=== PATIENT | female | born 1955 | race Caucasian/White ===

== ENCOUNTER 2025-03-29 12:15 | Outpatient (RCR) | payer MEDICARE, OTHER, SELFPAY ==
--- NOTE | 2025-02-20 10:40 | PT.OPPOC ---
Physical, Occupational & Speech Therapy At [facility] Current Diagnoses Benign paroxysmal vertigo, left ear (02/20/25) Dizziness and giddiness (02/20/25) Visit Care Team Role Provider Type Mable Luna MD Attending Provider Non-Staff Family Provider Primary Care Provider Referring Provider Specialty: Family Practice Address: [address] [place] [address]. [address], [place], [address] Email: Plan Of Care PT OP: Balance, Vestibular, Neuro Start: 02/20/25 10:27 Freq: Status: Active Protocol: Document 02/20/25 09:45 DCW (Rec: 02/20/25 10:38 DCW [id number]) Out-Patient Physical Therapy Visit Information Visit Information Visit Type Initial Evaluation Visit Start Time 09:45 Visit Stop Time 10:25 Visit Number 1 Number of PACKAGING SPECIALIST Visits 0 Progress Note Due 03/22/25 Evaluation Information Evaluation Date 02/20/25 Current Condition History of Current Condition Onset Date 01/23/25 Current Complaints Positional vertigo History of Current Pt is a 70 year old female complaining of a one month Condition history of motion-induced vertigo. Pt reports episodes last less than one minute. Symptoms are provoked by lying back, specifically on her left side, or quick head turns. Pt notes she had BPPV a few years ago, and it was successfully treated with an Asiya Maneuver. Pt denies recent hearing changes, diplopia, dysarthria, discoordination, or decreased mentation/consciousness. Pt reports symptoms are waxing/waning in nature. Pt denies hx of HTN, hyperlipidemia, diabetes, arrhythmia, head trauma, seizure, migraines, CVA, or excessive smoking or drinking. OP-PT Subjective Patient Comments Patient Comments Today's the worst that it has been. Yesterday, I thought it was getting better. Patient Questionnaires Dizziness Handicap Inventory DHI Score 66% Vestibular Assessment Auditory Tests Garrett Test Within normal limits Rinne Test Negative Air Conduction Equal Results Visual Testing Smooth Pursuits WNL Horizontal Smooth Pursuits WNL Vertical Saccades Horizontal WNL Saccades Vertical WNL Positional Testing [place]-Hallpike Positive Left,Negative Right,Upbeating,< 60 Seconds Canalithic Repositioning BPPV Treatment Asiya Affected Canal(s) Left Posterior Reps x2 Comments Modified Asiya Physical Therapy Assessment Rehab Potential Rehabilitation Excellent Potential Evaluation Complexity Number of Personal 3 or More Factors/ Comorbidities Number of Body 4 or More Systems Impaired Clinical Unstable Presentation at Evaluation Impairments Impairments Balance,Functional Activities,Functional Mobility, Transfers,Vestibular Goals Two Impairment Positive left [place]-Hallpike Reactor Operator Goal (LTG) Pt to present with negative positional testing bilaterally LTG Duration 04/22/25 One Impairment Pt experiences vertigo with bed mobility Reactor Operator Goal (LTG) Pt to report no vertigo with bed mobility for one full week LTG Duration 04/22/25 Assessment Summary Assessment During left [place]-Hallpike test, pt complained of vertigo and demonstrated up-beating, torsional nystagmus lasting approximately 15 seconds, consistent with diagnosis of left/right-sided posterior canal BPPV, canalithiasis-type. Pt was treated with a left-sided modified Asiya maneuver. Further positional testing again demonstrated positive findings for the left posterior canal, and a second Modified Asiya was performed. Pt was educated on BPPV, expectations for treatment, possible recurrence (BPPV has a ~50% recurrence rate in the five years following treatment), and post-Asiya restrictions. Pt to return in ~1 week for a follow-up appointment, and intermittently afterward as indicated for treatment of BPPV. Physical Therapy Plan Frequency and Duration Frequency of 2x/Week Treatment Plan of Care Start 02/20/25 Date Plan of Care End 04/22/25 Date Next Visit Focus/Plan Next Note Type Treatment Note Next Visit Plan Positional testing, CRM as indicated Plan of Care Dates Plan of Care Start Date 02/20/25 Plan of Care End Date 04/22/25 Electronically Signed by: Manolo Lopez, PT 02/20/25 6122 If you are in agreement with this Plan of Care, please return a signed and dated copy. I have reviewed this Plan of Care and certify that the skilled therapy services above are required to meet the patient?s needs. Physician Signature Date Printed Name and Credentials Clinical Instructor Signature Printed Name and Credentials
--- NOTE | 2025-03-03 09:41 | PT.OTN ---
Current Diagnoses Benign paroxysmal vertigo, left ear (03/03/25) Dizziness and giddiness (03/03/25) Physical Therapy Treatment Note PT OP: Balance, Vestibular, Neuro Start: 02/20/25 10:27 Freq: Status: Active Protocol: Document 03/03/25 09:00 DCW (Rec: 03/03/25 09:40 DCW [id number]) Out-Patient Physical Therapy Visit Information Visit Information Visit Type Treatment Note Visit Start Time 09:00 Visit Stop Time 09:30 Visit Number 2 Number of WIRE FENCE BUILDER Visits 0 Progress Note Due 03/22/25 Evaluation Information Evaluation Date 02/20/25 OP-PT Subjective Patient Comments Patient Comments It's still there a little bit, but it has changed. It' s still on the left, definitely not on the right, but it just feels a little different. It's still better than what it was, though. Vestibular Assessment Positional Testing [place]-Hallpike Positive Left,Upbeating,< 60 Seconds Rolling Test Positive Left,Positive Right,Geotropic,< 60 Seconds Canalithic Repositioning BPPV Treatment Gufoni Affected Canal(s) Left Horizontal Reps x2 Comments Geotropic Gufoni maneuver Asiya Affected Canal(s) Left Posterior Reps x1 Comments Modified Asiya Physical Therapy Assessment Impairments Impairments Balance,Functional Activities,Functional Mobility, Transfers,Vestibular Goals Two Impairment Positive left [place]-Hallpike Longterm Goal (LTG) Pt to present with negative positional testing bilaterally LTG Duration 04/22/25 One Impairment Pt experiences vertigo with bed mobility Longterm Goal (LTG) Pt to report no vertigo with bed mobility for one full week LTG Duration 04/22/25 Assessment Summary Assessment Upon retesting, pt demonstrated once again up-beating, torsional nystagmus lasting approximately 15 seconds during left [place]-Hallpike. A modified Asiya maneuver was performed. However, upon getting into the second position, pt exhibited geotropic horizontal nystagmus, suggesting that she had a potential partial conversion during treatment last week, or sometime while at home. After completing the modified Asiya maneuver, a second [place]-Hallpike was performed, and while no up-beating nystagmus was noted, pt did display continued horizontal nystagmus. A left-sided Gufoni maneuver x2 was perform in effort to treat horizontal canal BPPV. Pt instructed to follow-up with next scheduled visit for further testing and CRM as indicated. Physical Therapy Plan Frequency and Duration Frequency of 2x/Week Treatment Plan of Care Start 02/20/25 Date Plan of Care End 04/22/25 Date Therapeutic Interventions Therapeutic Balance Training,Canalithic Repositioning,Home Exercise Interventions Program,Manual Therapy,Neuromuscular Re-education, Patient/Caregiver Education,Self-Care/Home Management, Therapeutic Activities,Therapeutic Exercises,Vestibular Rehabilitation Next Visit Focus/Plan Next Note Type Treatment Note Next Visit Plan Positional testing, CRM as indicated
--- NOTE | 2025-03-13 11:27 | PT.OTN ---
Current Diagnoses Benign paroxysmal vertigo, left ear (03/13/25) Dizziness and giddiness (03/13/25) Physical Therapy Treatment Note PT OP: Balance, Vestibular, Neuro Start: 02/20/25 10:27 Freq: Status: Active Protocol: Document 03/13/25 10:45 DCW (Rec: 03/13/25 11:27 DCW [id number]) Out-Patient Physical Therapy Visit Information Visit Information Visit Type Treatment Note Visit Start Time 10:45 Visit Stop Time 11:15 Visit Number 3 Number of MANAGER SHELL Visits 0 Progress Note Due 03/22/25 Evaluation Information Evaluation Date 02/20/25 OP-PT Subjective Patient Comments Patient Comments I felt really good leaving here last week, but I forgot about propping myself up that night, and forgot about not rolling onto my side, and I've been pretty dizzy since then. Vestibular Assessment Positional Testing [place]-Hallpike Positive Left,Upbeating,< 60 Seconds Rolling Test Positive Left,Positive Right,Geotropic,< 60 Seconds Manual Therapy Treatment Other Other Manual Positional testing Treatments Canalithic Repositioning BPPV Treatment Asiya Affected Canal(s) Left Posterior Reps x1 Comments Modified Asiya Physical Therapy Assessment Goals Two Impairment Positive left Luke-Hallpike Field Logistics Coordinator Goal (LTG) Pt to present with negative positional testing bilaterally LTG Duration 04/22/25 One Impairment Pt experiences vertigo with bed mobility Mcfp Goal (LTG) Pt to report no vertigo with bed mobility for one full week LTG Duration 04/22/25 Assessment Summary Assessment Pt strongly positive with left [place]-Hallpike, with strong nystagmus and up-beating, torsional nystagmus lasting approximately 15 seconds. In Asiya position 2, pt demonstrated ageotropic nystagmus. After completing modified Asiya, roll test was performed, with left negative and right strongly ageotropic, which is highly unusual. Concerns of atypical BPPV vs central findings . Provided pt with Appiani handout to try, with plans to get pt back in for follow-up. If pt testing still unusual at follow-up, may benefit from referral out to ENT or neurology for further testing. Physical Therapy Plan Frequency and Duration Frequency of 2x/Week Treatment Plan of Care Start 02/20/25 Date Plan of Care End 04/22/25 Date Therapeutic Interventions Therapeutic Balance Training,Canalithic Repositioning,Home Exercise Interventions Program,Manual Therapy,Neuromuscular Re-education, Patient/Caregiver Education,Self-Care/Home Management, Therapeutic Activities,Therapeutic Exercises,Vestibular Rehabilitation Next Visit Focus/Plan Next Note Type Treatment Note Next Visit Plan Positional testing, CRM as indicated
--- NOTE | 2025-03-17 09:34 | PT.OTN ---
Current Diagnoses Benign paroxysmal vertigo, left ear (03/17/25) Dizziness and giddiness (03/17/25) Physical Therapy Treatment Note PT OP: Balance, Vestibular, Neuro Start: 02/20/25 10:27 Freq: Status: Active Protocol: Document 03/17/25 09:00 DCW (Rec: 03/17/25 09:34 DCW [id number]) Out-Patient Physical Therapy Visit Information Visit Information Visit Type Progress Note Visit Start Time 09:00 Visit Stop Time : Visit Number 4 Number of ORAL AND MAXILLOFACIAL SURGERY Visits 0 Progress Note Due 04/16/25 Evaluation Information Evaluation Date 02/20/25 OP-PT Subjective Patient Comments Patient Comments I felt really good after leaving here Thursday. But on Thursday I did those exercises you game me (Appiani Maneuver), and it just made be feel pretty lousy, so I haven't really done them the past few days. Vestibular Assessment Positional Testing [place]-Hallpike Positive Left,Upbeating,< 60 Seconds Rolling Test Ageotropic Manual Therapy Treatment Other Other Manual Positional testing Treatments Canalithic Repositioning BPPV Treatment Asiya Affected Canal(s) Left Posterior Reps x2 Comments Modified Asiya Physical Therapy Assessment Goals Two Impairment Positive left Luke-Hallpike Technical Instructor Course Developer Goal (LTG) Pt to present with negative positional testing bilaterally LTG Duration 04/22/25 One Impairment Pt experiences vertigo with bed mobility Technical Instructor Course Developer Goal (LTG) Pt to report no vertigo with bed mobility for one full week LTG Duration 04/22/25 Assessment Summary Assessment Pt continues to exhibit both a positive left [place]- Hallpike, but also ageotropic nystagmus during the Asiya maneuver. However today, ageotropic nystagmus present on both left and right, which is far more suggestive of potential cupulolithiasis-type lateral canal BPPV. Modified Asiya maneuver x2 was performed, with pt scheduled to follow-up for further testing and potential treatment for cupulolithiasis-type lateral canal BPPV. Physical Therapy Plan Frequency and Duration Frequency of 2x/Week Treatment Plan of Care Start 02/20/25 Date Plan of Care End 04/22/25 Date Therapeutic Interventions Therapeutic Balance Training,Canalithic Repositioning,Home Exercise Interventions Program,Manual Therapy,Neuromuscular Re-education, Patient/Caregiver Education,Self-Care/Home Management, Therapeutic Activities,Therapeutic Exercises,Vestibular Rehabilitation Next Visit Focus/Plan Next Note Type Treatment Note Next Visit Plan Positional testing, CRM as indicated
--- NOTE | 2025-03-24 12:44 | PT.OTN ---
Current Diagnoses Benign paroxysmal vertigo, left ear (03/24/25) Dizziness and giddiness (03/24/25) Physical Therapy Treatment Note PT OP: Balance, Vestibular, Neuro Start: 02/20/25 10:27 Freq: Status: Active Protocol: Document 03/24/25 12:15 DCW (Rec: 03/24/25 12:44 DCW [id number]) Out-Patient Physical Therapy Visit Information Visit Information Visit Type Treatment Note Visit Start Time 12:15 Visit Stop Time 12:40 Visit Number 5 Number of ASSEMBLER WATCH TRAIN Visits 0 Progress Note Due 04/16/25 Evaluation Information Evaluation Date 02/20/25 OP-PT Subjective Patient Comments Patient Comments I felt great for the first two day, I really thought I was over this, but then the next morning, I woke up on my left side, and it's just been dizzy again since then. Vestibular Assessment Positional Testing [place]-Hallpike Positive Left,Upbeating,< 60 Seconds Rolling Test Ageotropic Manual Therapy Treatment Other Other Manual Positional testing Treatments Canalithic Repositioning BPPV Treatment Asiya Affected Canal(s) Left Posterior Reps x2 Comments Modified Asiya Physical Therapy Assessment Impairments Impairments Balance,Functional Activities,Functional Mobility, Transfers,Vestibular Goals Two Impairment Positive left Luke-Hallpike Signal Manager Goal (LTG) Pt to present with negative positional testing bilaterally LTG Duration 04/22/25 One Impairment Pt experiences vertigo with bed mobility Group Home Goal (LTG) Pt to report no vertigo with bed mobility for one full week LTG Duration 04/22/25 Assessment Summary Assessment Once again, pt exhibiting symptoms consistent with R posterior canal BPPV. Modified Asiya x2 performed, pt feeling much better upon sitting. Pt appears to consistently respond well to CRM, but then within a few days returns to being symptomatic. Continue to work on positional testing and CRM as indicated, may need to refer to ENT if symptoms continue to recur. Physical Therapy Plan Frequency and Duration Frequency of 2x/Week Treatment Plan of Care Start 02/20/25 Date Plan of Care End 04/22/25 Date Therapeutic Interventions Therapeutic Balance Training,Canalithic Repositioning,Home Exercise Interventions Program,Manual Therapy,Neuromuscular Re-education, Patient/Caregiver Education,Self-Care/Home Management, Therapeutic Activities,Therapeutic Exercises,Vestibular Rehabilitation Next Visit Focus/Plan Next Note Type Treatment Note Next Visit Plan Positional testing, CRM as indicated
--- NOTE | 2025-03-29 12:34 | PT.OTN ---
Current Diagnoses Benign paroxysmal vertigo, left ear (03/29/25) Dizziness and giddiness (03/29/25) Physical Therapy Treatment Note PT OP: Balance, Vestibular, Neuro Start: 02/20/25 10:27 Freq: Status: Active Protocol: Document 03/29/25 12:15 DCW (Rec: 03/29/25 12:34 DCW [id number]) Out-Patient Physical Therapy Visit Information Visit Information Visit Type Treatment Note Visit Start Time 12:15 Visit Stop Time 12:30 Visit Number 6 Number of CONVENTION SERVICES DIRECTOR Visits 0 Progress Note Due 04/16/25 Evaluation Information Evaluation Date 02/20/25 OP-PT Subjective Patient Comments Patient Comments I haven't had any dizziness since I was here last. Notes she has been still sleeping propped up, but has tried some gardening and is feeling great. Vestibular Assessment Positional Testing [place]-Hallpike Negative Left,Negative Right Manual Therapy Treatment Other Other Manual Positional testing Treatments Physical Therapy Assessment Goals Two Impairment Positive left Luke-Hallpike Custodial Goal (LTG) Pt to present with negative positional testing bilaterally LTG Duration 04/22/25 One Impairment Pt experiences vertigo with bed mobility Custodial Goal (LTG) Pt to report no vertigo with bed mobility for one full week LTG Duration 04/22/25 Assessment Summary Assessment Positional testing negative today. Would likely discharge, however since pt has been experiencing fairly consistent recurrence, do not want to discharge just yet. Pt in agreement to try to do normal activities between now and Thursday, and if she continues to experience no symptoms, will cancel remaining appointments and discharge at that time. Otherwise, pt will return next week as scheduled. Physical Therapy Plan Frequency and Duration Frequency of 2x/Week Treatment Plan of Care Start 02/20/25 Date Plan of Care End 04/22/25 Date Therapeutic Interventions Therapeutic Balance Training,Canalithic Repositioning,Home Exercise Interventions Program,Manual Therapy,Neuromuscular Re-education, Patient/Caregiver Education,Self-Care/Home Management, Therapeutic Activities,Therapeutic Exercises,Vestibular Rehabilitation Next Visit Focus/Plan Next Note Type Treatment Note Next Visit Plan Positional testing, CRM as indicated
--- NOTE | 2025-04-13 15:27 | PT.OPDS ---
Current Diagnoses Benign paroxysmal vertigo, left ear (03/29/25) Dizziness and giddiness (03/29/25) Visit Care Team Role Provider Type Mable Luna MD Attending Provider Non-Staff Family Provider Primary Care Provider Referring Provider Specialty: Family Practice Address: [address], [place], [address] Email: Visit Number Visit Number 6 Discharge Summary PT OP: Balance, Vestibular, Neuro Start: 02/20/25 10:27 Freq: Status: Active Protocol: Document 04/13/25 15:25 DCW (Rec: 04/13/25 15:27 DCW [id number]) Out-Patient Physical Therapy Visit Information Visit Information Visit Type Discharge Summary Physical Therapy Assessment Goals Two Impairment Positive left [place]-Hallpike Build Automation Engineer Goal (LTG) Pt to present with negative positional testing bilaterally LTG Duration Met One Impairment Pt experiences vertigo with bed mobility Build Automation Engineer Goal (LTG) Pt to report no vertigo with bed mobility for one full week LTG Duration Met Assessment Summary Assessment Pt phoned clinic to request discharge, states she is still asymptomatic, feeling great. Appropriate for discharge from vestibular therapy at this time. Physical Therapy Plan Frequency and Duration Frequency of 2x/Week Treatment Plan of Care Start 02/20/25 Date Plan of Care End 04/22/25 Date Therapeutic Interventions Therapeutic Balance Training,Canalithic Repositioning,Home Exercise Interventions Program,Manual Therapy,Neuromuscular Re-education, Patient/Caregiver Education,Self-Care/Home Management, Therapeutic Activities,Therapeutic Exercises,Vestibular Rehabilitation Discharge Physical Therapy Discharge Reasons Goals Met Next Visit Focus/Plan Next Note Type Discharge Summary
== END 2025-04-14 08:50 | disposition home or self-care (01) ==
LOC: PHYS 12:15
PROVIDERS: Family Provider Family Medicine; PCP Family Medicine; Referring Provider Family Medicine; Visit Provider Family Medicine
DX: H81.12 Benign paroxysmal vertigo, left ear (principal)
CPT/HCPCS: 95992; 97140; 97163